=== PATIENT | female | born 1940 | race Caucasian/White ===

== ENCOUNTER 2017-03-21 15:05 | Inpatient (IN) | payer MEDICARE, OTHER ==
[~2017-03-21] VITALS: Ht 30.5 cm; Wt 46.5 kg
[2017-03-21] VITALS (8 sets, daily range): BP systolic 121–157; BP diastolic 55–87
[2017-03-21] MEDS ORDERED: cefTRIAXone 1GM/10ml IVPUSH 10 ML IV ONE (15:30)
[2017-03-21] MEDS ORDERED: amLODIPine BESYLATE 5 MG TAB PO ONE (15:45)
[2017-03-21 16:22] LABS: Albumin 3.8 g/dL (3.4-5.0); BUN/Creatinine Ratio 16.7; Calcium 9.1 mg/dL (8.5-10.1)
[2017-03-21 16:25] LABS: Bilirubin, Total 0.6 mg/dL (0.2-1.0); Total Protein 7.6 g/dL (6.4-8.2)
[2017-03-21 16:37] LABS: Potassium 2.9 mmol/L (3.5-5.1)
[2017-03-21] MEDS ORDERED: AZITHROMYCIN 500MG/ 250ML 250 ML IV ONE (16:45)
[2017-03-21] MEDS: FAMOTIDINE 20 MG TAB PO SCH (17:09)
[2017-03-21] MEDS: SODIUM CHLORIDE 0.9% 1,000 ML IV SCH (17:09)
[2017-03-21] MEDS: POTASSIUM CHL 10% (20 MEQ/15ML) 15ml ORAL SOLN PO SCH ×2 (17:11→21:08)
[2017-03-21] MEDS ORDERED: OSELTAMIVIR 30 MG CAP PO ONE (17:15)
[2017-03-21 17:29] LABS: Basophils # (auto) 0 uL; Eosinophils # (auto) 0 uL; Lymphocytes # (auto) 0.3 uL; Monocytes # (auto) 0.5 uL; Nucleated Red Blood Cells % 0.1 %
[2017-03-21 17:31] LABS: Basophils % (auto) 0.3 % (0.0-2.0); Hematocrit 21.7 % (36.0-46.0); Lymphocytes % (auto) 4.9 % (10.0-50.0); Mean Corpuscular Hgb Conc. 28.1 g/dL (32.0-36.0); Monocytes % (auto) 7.6 % (0.0-12.0); Neutrophils # (auto) 5.4 uL; Neutrophils % (auto) 87.2 % (37.0-80.0); Platelet Count (auto) 210 10^3/uL (140-450); Red Blood Cells 3.81 10^6/uL (4.0-5.20); White Blood Cell 6.2 10^3/uL (4.4-10.8)
[2017-03-21 17:46] LABS: Red Cell Distribution Width 21.9 % (11.8-14.3)
[2017-03-21 17:50] LABS: Hemoglobin 6.1 g/dL (12.2-16.2)
[2017-03-21] MEDS: ALBUTEROL SULF 2.5 MG/0.5ML(0.5%) NEB SOLN NEB SCH (18:00)
[2017-03-21] MEDS: IPRATROPIUM BROM 0.5 MG/2.5ML INH SOL NEB SCH (18:00)
[2017-03-21 19:09] LABS: INR 1.05 (0.9-1.15); Partial Thromboplastin Time 25.9 sec (22.64-33.71); Prothrombin Time 11.5 sec (9.37-12.3)
[2017-03-21] MEDS ORDERED: FAMOTIDINE 20 MG TAB PO SCH (22:00)
[2017-03-22] VITALS (15 sets, daily range): BP systolic 124–160; BP diastolic 64–83
[2017-03-22] MEDS: ALBUTEROL SULF 2.5 MG/0.5ML(0.5%) NEB SOLN NEB SCH ×4 (00:35→19:25)
[2017-03-22] MEDS: IPRATROPIUM BROM 0.5 MG/2.5ML INH SOL NEB SCH ×4 (00:35→19:25)
[2017-03-22] MEDS: SODIUM CHLORIDE 0.9% 1,000 ML IV SCH (04:50)
[2017-03-22] MEDS: OSELTAMIVIR 30 MG CAP PO SCH ×2 (08:00→16:00)
[2017-03-22 08:32] LABS: Eosinophils # (auto) 0 uL; Hemoglobin 7.2 g/dL (12.2-16.2); Monocytes # (auto) 0.4 uL; White Blood Cell 7.9 10^3/uL (4.4-10.8)
[2017-03-22 08:35] LABS: Basophils # (auto) 0.1 uL; Basophils % (auto) 0.7 % (0.0-2.0); Eosinophils % (auto) 0.2 % (0.0-7.0); Hematocrit 24.4 % (36.0-46.0); Lymphocytes # (auto) 0.8 uL; Lymphocytes % (auto) 9.7 % (10.0-50.0); Mean Corpuscular Hemoglobin 18.4 pg (28.0-32.0); Mean Corpuscular Hgb Conc. 29.4 g/dL (32.0-36.0); Mean Corpuscular Volume 62.6 fL (80.0-100.0); Monocytes % (auto) 5.5 % (0.0-12.0); Neutrophils # (auto) 6.7 uL; Neutrophils % (auto) 83.9 % (37.0-80.0); Platelet Count (auto) 188 10^3/uL (140-450)
[2017-03-22 08:44] LABS: Red Cell Distribution Width 27.9 % (11.8-14.3)
[2017-03-22 08:47] LABS: Albumin 3.4 g/dL (3.4-5.0); Calcium 8.8 mg/dL (8.5-10.1); Potassium 3.8 mmol/L (3.5-5.1)
[2017-03-22 08:50] LABS: Bilirubin, Total 0.8 mg/dL (0.2-1.0)
[2017-03-22] MEDS: amLODIPine BESYLATE 5 MG TAB PO SCH (10:32)
[2017-03-22] MEDS: cefTRIAXone 1GM/10ml IVPUSH 10 ML IV SCH (10:32)
[2017-03-22] MEDS: FAMOTIDINE 20 MG TAB PO SCH (10:33)
[2017-03-22] MEDS: NICOTINE 14 MG/24HR TOPICAL PATCH TD SCH (10:33)
[2017-03-22] MEDS: AZITHROMYCIN 500MG/ 250ML 250 ML IV SCH (10:45)
[2017-03-22 14:43] LABS: % Iron Saturation 5.3 % (15-50)
[2017-03-22 15:53] LABS: Urine Bacteria NONE SEEN /hpf (None Seen); Urine Blood Negative /uL (Negative); Urine Specific Gravity 1.019 (1.001-1.035); Urine WBC 6 /hpf (0 - 5)
[2017-03-22] MEDS ORDERED: AMLO5TAB2 (17:58)
[2017-03-23 05:27] VITALS: BP 155/94
[2017-03-23] MEDS: ALBUTEROL SULF 2.5 MG/0.5ML(0.5%) NEB SOLN NEB SCH ×3 (05:33→11:51)
[2017-03-23] MEDS: IPRATROPIUM BROM 0.5 MG/2.5ML INH SOL NEB SCH ×3 (05:33→11:51)
[2017-03-23 07:25] LABS: Basophils # (auto) 0 uL; Basophils % (auto) 0.6 % (0.0-2.0); Eosinophils # (auto) 0 uL; Eosinophils % (auto) 0.3 % (0.0-7.0); Hematocrit 29.5 % (36.0-46.0); Lymphocytes # (auto) 1.2 uL; Lymphocytes % (auto) 16.8 % (10.0-50.0); Mean Corpuscular Hemoglobin 19.8 pg (28.0-32.0); Mean Corpuscular Hgb Conc. 30.6 g/dL (32.0-36.0); Mean Corpuscular Volume 64.7 fL (80.0-100.0); Monocytes # (auto) 0.5 uL; Monocytes % (auto) 6.7 % (0.0-12.0); Neutrophils # (auto) 5.6 uL; Neutrophils % (auto) 75.6 % (37.0-80.0); Nucleated Red Blood Cells % 0.1 %; Platelet Count (auto) 171 10^3/uL (140-450); Red Blood Cells 4.56 10^6/uL (4.0-5.20); White Blood Cell 7.4 10^3/uL (4.4-10.8)
[2017-03-23 07:30] VITALS: BP 146/86
[2017-03-23] MEDS: OSELTAMIVIR 30 MG CAP PO SCH (08:00)
[2017-03-23 09:00] VITALS: BP 179/79
[2017-03-23] MEDS: cefTRIAXone 1GM/10ml IVPUSH 10 ML IV SCH (09:06)
[2017-03-23] MEDS ORDERED: ACETAMINOPHEN 325 MG TAB PO PRN ×2 (09:45→10:00)
[2017-03-23] MEDS: NICOTINE 14 MG/24HR TOPICAL PATCH TD SCH (10:00)
[2017-03-23] MEDS: FAMOTIDINE 20 MG TAB PO SCH (11:35)
[2017-03-23] MEDS: AZITHROMYCIN 500MG/ 250ML 250 ML IV SCH (11:35)
[2017-03-23] MEDS: amLODIPine BESYLATE 5 MG TAB PO SCH (11:35)
[2017-03-23 11:50] VITALS: BP 146/86
[2017-03-23 12:00] VITALS: BP 117/55
== END 2017-03-23 15:30 | disposition home or self-care (01) | DRG 190 ==
LOC: EAST 15:05
PROVIDERS: ADMIT Internal Medicine; ATTEND Internal Medicine Geriatric Medicine
PROC: 30233N1 Transfusion of Nonautologous Red Blood Cells into Peripheral Vein, Percutaneous Approach (ICD-10-PCS; principal; 2017-03-21)
DX: J44.0 Chronic obstructive pulmonary disease with (acute) lower respiratory infection (principal); J18.1 Lobar pneumonia, unspecified organism; D64.9 Anemia, unspecified; F03.90 Unspecified dementia, unspecified severity, without behavioral disturbance, psychotic disturbance, mood disturbance, and anxiety; E86.0 Dehydration; I11.9 Hypertensive heart disease without heart failure; E87.6 Hypokalemia; F17.210 Nicotine dependence, cigarettes, uncomplicated; R29.6 Repeated falls; Z79.899 Other long term (current) drug therapy
CPT/HCPCS: 36415; 71045; 80053; 81001; 82378; 82607; 82746; 83540; 83550; 85025; 85610; 85730; 86850; 86900; 86901; 86920; 87081; 87804; 94640; G9035